=== PATIENT | female | born 1970 | race Caucasian/White ===

== ENCOUNTER → 2017-04-13 | Outpatient (CLI) | payer MEDICAID ==
--- NOTE | 2017-04-13 14:36 | RADIOLOGY REPORT PS360 ---
US PELVIS-TRANSVAGINAL ONLY HISTORY: EXCESSIVE AND FREQUENT MENSTRUATION,LEIOMYOMA OF UTERUS ORDERING PHYSICIAN: Maco Walters MD PATIENT AGE: 46 years COMPARISON: None FINDINGS: The uterus measures 9 x 5 x 6 cm. Combined endometrial thickness is 4 mm. There is heterogeneous echogenicity of the uterus. A 2.6 x 2.6 cm fibroid is present along the posterior aspect of the body of the uterus. There is a 2.3 x 2 cm fibroid along the fundus of the uterus. A 1.3 cm fibroid also noted at the fundal area. The left ovary is 2.5 x 2.3 cm. There is a 9 mm cyst in the left ovary. The right ovary is 2.8 x 2.4 cm and contains a 12 mm cyst. Bilateral ovarian blood flow is present. There is a small amount fluid in the left adnexa and cul-de-sac. IMPRESSION: 1. Fibroid involvement of the uterus. 2. Small amount fluid in the cul-de-sac with small bilateral ovarian cyst.
== END ==
LOC: RAD 13:21
DX: N92.0 Excessive and frequent menstruation with regular cycle (principal); D25.9 Leiomyoma of uterus, unspecified; K62.5 Hemorrhage of anus and rectum

== ENCOUNTER → 2017-04-21 | Outpatient (CLI) | payer MEDICAID ==
[2017-04-21 10:36] LABS: LYMPH # 1.4 K/mm3 (0.7-4.5); LYMPH % 27.5 % (10-50.0)
== END ==
LOC: RAD 10:07
PROVIDERS: Obstetrics & Gynecology
DX: Z12.31 Encounter for screening mammogram for malignant neoplasm of breast (principal); N93.8 Other specified abnormal uterine and vaginal bleeding; D25.0 Submucous leiomyoma of uterus
CPT/HCPCS: G0202